=== PATIENT | male | born 1980 | race Caucasian/White ===

== ENCOUNTER → 2019-07-09 07:25 | Outpatient (CLI) | payer BC ==
[~2019-07-09] VITALS: Ht 193 cm; Wt 135.4 kg
--- NOTE | ~2019-07-09 | HEMODYNAMI ---
PATIENT:UZAIR DEGROOT MEDICAL RECORD: [id number] : 82 LOCATION:[facility] ADMISSION DATE: 07/09/19 Generatedon:07/09/201911:48 Patient name: UZAIR DEGROOT Patient #: [id number] : 1980 Date of study: 07/09/2019 Page: Of Hemodynamic Procedure Report Patient Data Patient Demographics Procedure consent was obtained First Name: UZAIR Gender: Male Last Name: MIKAYLA : 1980 Patient #: [id number] Age: 38 year(s) Race: SSN: [id number] Additional ID: [id number] Contact details [address]: [address] [place] [address] [place] State: [place] City: [place] Zip code: [address] Past Medical History Allergies: No known allergies Admission Admission Data Admission Date: 07/09/2019 Admission Time: 7:25 Lab Results Lab Result Date: 07/09/2019 Lab Result Time: 0:00 Biochemistry Name Units Result Min Max BUN mg/dl 13 --(--*-)-- 7 18 Creatinine mg/dl 1.1 --(--*-)-- 0.6 1.3 eGFR ml/min 79.59821 *-(----)-- 90 120 NONAFRICAN CBC Name Units Result Min Max Hemoglobin g/dl 15.9 --(--*-)-- 13.5 17.5 Procedure Procedure Types Cath Procedure Diagnostic Procedure LHC LHC w/Coronaries Sedation Charges Moderate Sedation up to 15 minutes Procedure Description Procedure Date Procedure Date: 07/09/2019 Procedure Start Time: 11:37 Procedure End Time: 11:46 Procedure Staff Name Function Raheem Long MD Performing Physician Krissy Singletary RT Scrub Emmie Jason RT Monitor Melida Morales RN Nurse Procedure Data Cath Procedure Fluoroscopy Diagnostic fluoroscopy Total fluoroscopy Time: 1.1 time: 1.1 min min Diagnostic fluoroscopy Total fluoroscopy dose: 435 dose: 435 mGy mGy Contrast Material Contrast Material Type Amount (ml) Isovue 300 36 Entry Location Entry Primary Successful Side Size Upsize Upsize Entry Closure Hensley ccessful Closure Location (Fr) 1 (Fr) 2 (Fr) Remarks Device Remarks Radial Right 6 Fr Mechanical artery Short Compression Estimated blood loss: 5 ml Diagnostic catheters Device Type Used For End Catheter Placement DIAGNOSTIC [place] 110cm 5 Procedure Fr catheter ([id number]) Procedure Complications No complications Procedure Medications Medication Administration Route Dosage Oxygen etCO2 Nasal cannula 2 l/min Heparin Flush Bag added to field 2 bags (1000units/500ml NS) Lidocaine 2% added to field 20 Radial Cocktail added to field 1 syringe (Verapamil 2mg/Nitro 400mcg/Heparin 1500units) 0.9% NaCl I.V. 100 ml/hr Versed I.V. 2 mg Fentanyl I.V. 100 mcg Versed I.V. 2 mg Fentanyl I.V. 100 mcg Fentanyl I.V. 100 mcg Hemodynamics Rest HGB: 15.9 (g/dl) Heart Rate: 69 (bpm) Snapshots Pre Cath Intra NCS Post Cath Vital Signs Time Heart Resp SPO2 etCO2 NIBP (mmHg) Rhythm Pain Sedation Rate (ipm) (%) (mmHg) Status Level (bpm) 11:05:07 93 14 97 0 134/91(110) NSR 0 (11) 10(A) , No pain 11:09:18 77 14 96 0 152/94(115) NSR 0 (11) 10(A) , No pain 11:13:34 88 22 100 0 155/88(129) NSR 0 (11) 10(A) , No pain 11:17:53 91 14 98 18.9 155/92(106) NSR 0 (11) 10(A) , No pain 11:22:11 106 13 97 40.1 161/88(110) NSR 0 (11) 10(A) , No pain 11:27:18 101 14 96 41.6 153/88(124) NSR 0 (11) 10(A) , No pain 11:31:32 87 13 97 40.1 147/84(108) NSR 0 (11) 10(A) , No pain 11:35:50 88 15 97 37.9 148/88(112) NSR 0 (11) 9(A) , No pain 11:41:01 121 24 99 39.4 155/88(107) NSR 0 (11) 9(A) , No pain 11:44:26 110 15 99 21.2 153/93(106) NSR 0 (11) 10(A) , No pain Medications Time Medication Route Dose Verified Delivered Reason Notes Ef fectiveness by by 11:09:45 Oxygen etCO2 2 l/min Verna Verna for low Nasal Isabel Hall, 02 sats cannula RN RN 11:09:54 Heparin Flush added 2 bags Verna Verna used for Bag to Isabel Hall procedure (1000units/500ml field RN RN NS) 11:10:06 Lidocaine 2% added 20ml Verna Raheem used for to vial Ethan Hall MD procedure field RN 11:10:34 0.9% NaCl I.V. 100 Verna Verna used for ml/hr Isabel Hall appraiser RN 11:29:24 Versed I.V. 2 mg Verna Buffie for Carmen Hall RN sedation RN 11:29:30 Fentanyl I.V. 100 mcg Verna Buffie for Carmen Hall RN sedation RN 11:34:55 Versed I.V. 2 mg Verna Buffie for Carmen Hall RN sedation RN 11:34:59 Fentanyl I.V. 100 mcg Verna Buffie for Carmen Hall RN sedation RN 11:38:16 Radial Cocktail added 1 Verna Raheem used for (Verapamil to syringe Ethan Hall MD procedure 2mg/Nitro field RN 400mcg/Heparin 1500units) 11:42:08 Fentanyl I.V. 100 mcg Verna Buffie for Carmen Hall RN sedation eap specialist Log Time Note 10:57:15 Diagnostic Cath Status : Elective 10:57:32 Procedure Status Elective Heart Cath (OP). 10:57:35 Raheem Long MD sent for patient. Start room use. 10:57:36 Time tracking: Regular hours (M-F 7:00 - 5:00) 10:57:41 Plan of Care:Hemodynamics will remain stable., Cardiac rhythm will remain stable., Comfort level will be maintained., Respiratory function will remain adequate., Patient/ family verbilizes understanding of procedure., Procedure tolerated without complication., Recovers from procedure without complications.. 10:58:04 Informed consent obtained and on chart 11:00:40 Lab Result : Creatinine 1.1 mg/dl 11:00:40 Lab Result : BUN 13 mg/dl 11:00:40 Lab Result : eGFR NONAFRICAN 79.79490 ml/min 11:00:40 Lab Result : Hemoglobin 15.9 g/dl 11:01:41 Patient received from Pre/Post Procedure Room to [facility] 2 Alert and oriented. Tansferred to table in Supine position. 11:01:42 Warm blankets applied, and mary anne hugger turned on for patient comfort. 11:01:43 Correct patient and procedure confirmed by team. 11:01:43 ECG and BP/O2 sat monitors applied to patient. 11:03:57 Vital chart was started 11:03:58 Baseline sample Acquired. 11:04:04 Rhythm: sinus rhythm 11:04:05 Full Disclosure recording started 11:04:08 H&P Date Dictated: 07/09/2019 Within 30 days and on chart., H&P Addendum completed by physician on day of procedure. (MUST COMPLETE FOR ALL OUTPATIENTS). 11:04:19 Pre-procedure instructions explained to patient. 11:04:20 Pre-op teaching completed and patient verbalized understanding. 11:04:21 Family in waiting room. 11:04:22 Patient NPO since Midnight. 11:04:24 Is the patient allergic to Iodine/contrast media? No. 11:04:25 Was the patient premedicated? Yes 11:04:37 Is patient on blood thinner?No 11:04:39 Patient diabetic? No. 11:04:42 Previous problem with sedation/anesthesia? No ? 11:04:44 Snore? Yes 11:04:47 Sleep apnea? Yes 11:04:47 Deviated septum? No 11:04:48 Opens mouth fully? Yes 11:04:49 Sticks out tongue? Yes 11:04:52 Airway obstruction? No ? 11:04:53 Dentures? No ? 11:04:57 Pre procedure: right dorsailis pedis pulse 2+ Normal; easily identifiable; not easily obliterated 11:05:00 Pre procedure: left dorsailis pedis pulse 2+ Normal; easily identifiable; not easily obliterated 11:05:04 Patient pain scale 0/10 ?. 11:05:10 IV patent on arrival in left forearm with 0.9% NaCl at [facility]. 11:05:12 Lab results completed and on chart. 11:05:16 Stress Test: no; N/A ? 11:05:19 Risk of Mortality: 0.1 11:05:22 Risk of blood transfusion: 0.1 11:05:29 Risk of RADHA: 0.6 11:06:15 Right Radial & Right Groin area was prepped with chlora-prep and draped in sterile fashion 11:06:16 Alarms reviewed by R. N. 11:06:16 Sharps counted by scrub and verified by R.N. 11:09:45 Oxygen 2 l/min etCO2 Nasal cannula was administered by Verna Hall RN; for low 02 sats; Verbal order read back and verified. 11:09:54 Heparin Flush Bag (1000units/500ml NS) 2 bags added to field was administered by Verna Hall RN; used for procedure; Verbal order read back and verified. 11:10:06 Lidocaine 2% 20ml vial added to field was administered by Raheem Long MD; used for procedure; Verbal order read back and verified. 11:10:34 0.9% NaCl 100 ml/hr I.V. was administered by Verna Hall RN; used for procedure; Verbal order read back and verified. 11:28:07 Patient allergic to No known allergies 11:28:26 Zero performed for pressure channel P1 11:28:41 Physician arrived 11:28:42 --------ALL STOP TIME OUT------ 11:28:43 Final Timeout: patient, procedure, and site verified with staff and physician. All members of the team are in agreement. 11:28:52 Right Radial & Right Groin site verified by team. 11:28:57 Fire Safety Assessment: A--An alcohol-based skin anteseptic being used preoperatively., C--Open oxygen or nitrous oxide is being used., D--An ESU, laser, or fiber-optic light is being used. 11:29:02 Physical assessment completed. ASA score P 2 - A patient with mild systemic disease as per Raheem Long MD. 11:29:11 1) 90+ Normal kidney functon but urine findings or structural abnormalities or genetic trait point to kidney disease. 11:29:17 Maximum allowable contrast dose (3.7 X eGFR X 0.75)222 ml. 11:29:23 Sedation plan: IV Moderate Sedation Medication:Versed, Fentanyl 11:29:24 Versed 2 mg I.V. was administered by Melida Morales RN; for sedation; Verbal order read back and verified. 11:29:30 Fentanyl 100 mcg I.V. was administered by Melida Morales RN; for sedation; Verbal order read back and verified. 11:29:38 Use device set Radial Dx or PCI 11:29:40 ACIST Syringe (83257) opened to sterile field. 11:29:41 Medline Cath Pack ([id number]) opened to sterile field. 11:29:41 Bag Decanter (2002S) opened to sterile field. 11:29:42 ACIST Hand Control (83834) opened to sterile field. 11:29:43 ACIST Manifold (30856) opened to sterile field. 11:29:44 Tegaderm 4 x 4 (1626W) opened to sterile field. 11:29:44 MBrace Wrist Support ([id number]) opened to sterile field. 11:29:47 EMERALD Guide Wire (191-976) opened to sterile field. 11:29:48 SHEATH 6FR RAIN (4457668) opened to sterile field. 11:34:55 Versed 2 mg I.V. was administered by Melida Morales RN; for sedation; Verbal order read back and verified. 11:34:59 Fentanyl 100 mcg I.V. was administered by Melida Morales RN; for sedation; Verbal order read back and verified. 11:37:37 Procedure started. 11:37:43 Local anesthetic to right radial artery with Lidocaine 2% by Raheem Long MD.INITIAL ACCESS ONLY 11:38:04 A 6 Fr Short sheath was inserted into the Right Radial artery 11:38:08 Zero performed for pressure channel P1 11:38:12 A DIAGNOSTIC [place] 110cm 5 Fr catheter (457276) was advanced over the wire and used for Procedure. 11:38:16 Radial Cocktail (Verapamil 2mg/Nitro 400mcg/Heparin 1500units) 1 syringe added to field was administered by Raheem Long MD; used for procedure; Verbal order read back and verified. 11:38:31 Injector settings: Ml/sec: 5, Volume: 15, 11:38:35 LV gram done using HOPSON 11:38:45 EF : 65 % 11:39:32 LCA angiography performed. 11:39:42 Injector settings: Ml/sec: 3, Volume: 6, 11:40:04 RCA angiography performed. 11:40:10 Injector settings: Ml/sec: 3, Volume: 6, 11:40:13 Catheter removed. 11:40:54 ZEPHYR REGULAR TR BAND (688078) opened to sterile field. 11:41:05 Procedure ended.(Physican Out) 11:41:14 Sheath removed intact; hemostasis achieved with Mechanical Compression to the Right Radial artery. 11:41:22 Contrast amount:Isovue 300 36ml. 11:41:35 Fluoroscopy time 01.10 minutes. 11:41:44 Fluoroscopy dose: 435 mGy 11:41:44 Flurop Dose total: 435 11:41:53 Dose Area Product 06090 mGy/cm. 11:41:56 Maximum allowable dose exceeded? No. 11:41:57 Sharps counted by scrub and verified by R.N. 11:42:01 Zebulon band inflated with 10cc of air. 11:42:08 Fentanyl 100 mcg I.V. was administered by Melida Morales RN; for sedation; Verbal order read back and verified. 11:42:14 Post right radial artery:stable 11:42:18 Post Procedure Pulses reassessed and unchanged 11:42:22 Post-procedure physical assessment completed. ASA score P 2 - A patient with mild systemic disease as per Raheem Long MD. 11:42:26 Post procedure rhythm: unchanged. 11:42:30 Estimated blood loss: 5 ml 11:42:31 Post procedure instruction explained to patient.Patient verbalizes understanding. 11:42:33 Patient needs reinforcement of post procedure teaching. 11:45:37 Procedure type changed to Cath procedure, Diagnostic procedure, LHC, [facility] w/Coronaries, Sedation Charges, Moderate Sedation up to 15 minutes 11:45:39 Procedure and supply charges have been captured, reviewed, submitted and are correct. 11:46:09 Procedure Complication : No complications 11:46:13 Vital chart was stopped 11:46:17 [facility] Findings: mild to moderate CAD (<70%) 11:46:21 Operative report dictated upon procedure completion. 11:46:22 See physician's report for complete and final results. 11:46:31 Report given to Pre/Post Procedure Room. 11:46:35 Patient transfered to Pre/Post Procedure Room with Stretcher. 11:46:38 Procedure ended. 11:46:38 Full Disclosure recording stopped Device Usage Item Name Manufacture Quantity Catalog Hospital Part Current Minima l Lot# / Number Charge Number Stock Stock Serial# Code ACIST Acist 1 16706 [id number] 309395 [id number] 20 Syringe Medical (26918) Systems Inc Medline Medline 1 [id number] 59085 200331 5 Cath Pack ([id number]) Bag Microtek 1 2001S 957456 74619 886978 5 Decanter Medical Inc. () ACIST Hand Acist 1 10461 078111 499137 373709 5 Control Medical (57952) Systems Inc ACIST Acist 1 47356 913719 745341 020425 5 Manifold Medical (79809) Systems Inc Tegaderm 4 3M 1 1626W 379214 807635 570145 5 x 4 (1626W) MBrace Advanced 1 140-0250-00 881416 22427 024863 5 Wrist Vascular Support Dynamics ([id number]) EMERALD Cardinal 1 502-421 706786 827910 583163 5 Guide Wire Health (502455) SHEATH 6FR Cardinal 1 [id number] 215383 3644699 567931 5 [facility] Health (9693311) DIAGNOSTIC Terumo 1 40-9606 381795 058677 112342 5 [place] 110cm 5 Fr catheter (896270) ZEPHYR Cardinal 1 439126 228900 1890325 383537 5 REGULAR TR Health BAND (064015) Signature Audit [place] Stage Time Signature Unsigned Intra-Procedure 07/09/2019 Emmie 11:47:05 AM Casie RT(R) (CV) Intra-Procedure 07/09/2019 Melida Morales RN 11:47:32 AM Intra-Procedure 07/09/2019 Raheem Long 11:48:07 AM Signatures Performing Physician : Signature : Raheem Long MD Date : Time : Monitor : Emmie Signature : Nannemann RT Date : Time : Nurse : Buffie Morales RN Signature : Date : Time : [address] [place] [address]
[~2019-07-09 07:25] MED LIST: ANASTROZOLE; LIPITOR80 MG PO; LISINOPRIL40 MG PO; MELATONIN10 M1 PO; OMEPRAZOLE40 MG PO; PROAIR HFA8.5 G1 INH; WELLBUTRIN SR150 MG PO
[2019-07-09 07:59] VITALS: BP 126/74; Ht 193 cm; Wt 135.4 kg
[2019-07-09 08:32] LABS: BASOPHILS 0.2 % (0-2); HEMATOCRIT 47.1 % (42.0-54.0); HEMOGLOBIN 15.9 g/dL (13.5-17.5); LYMPHOCYTES 19.2 % (15-50); MCH 30.1 pg (26.0-34.0); MCHC 33.8 g/dL (31.0-37.0); MCV 89.2 fL (80.0-100.0); MEAN PLATELET VOLUME 9.9 fL (7.4-10.4); MONOCYTES 11.8 % (2-11); NEUTROPHILS 64.8 % (40-80); PLATELET COUNT 275 10x3/uL (130-400); RBC 5.28 10x6/uL (4.20-6.10); RDW 13.9 % (11.5-14.5); WBC 9.6 10x3/uL (4.8-10.8)
[2019-07-09 08:39] LABS: ALT (SGPT) 65 U/L (10-68); CALC OSMOLALITY 271 mosm/kg (275-300); CALCIUM 9.1 mg/dL (8.5-10.1); CARBON DIOXIDE 25.9 mmol/L (21.0-32.0); CHLORIDE - SERUM 101 mmol/L (98-107); CHOL - HDL RATIO 3.7 ratio (2.3-4.9); CHOLESTEROL, TOTAL 103 mg/dL (0-200); CREATININE - SERUM 1.1 mg/dL (0.6-1.3); GLUCOSE 106 mg/dL (74-106); HDL CHOLESTEROL 28 mg/dL (32-96); LDL CHOLESTEROL 64 mg/dL (0-100); LDL-HDL RATIO 2.3 ratio (1.5-3.5); POTASSIUM - SERUM 4.5 mmol/L (3.5-5.1); SODIUM 136 mmol/L (136-145); TRIGLYCERIDE 59 mg/dL (30-200); UREA NITROGEN 13 mg/dL (7-18); eGFR NON AFRICAN AMERICAN 80 mL/min (90-120)
--- NOTE | 2019-07-09 11:50 | NUR ---
PT RECEVIED VIA STRETCHER FROM [employer]EL RECRUITER FOR RECOVERY. PT AWAKE AND ALERT, DENIES PAIN OR DISCOMFORT. IV PATENT INFUSING VIA ORDERS TO L ARM. PT PLACED ON CARDIAC MONITORS AND O2 VIA NC AT 2L. HR S TACHY, RATE 97, BP 139/82, RR 14, SAT 94. ZYPHER BAND AND IMMOBILIZER TO R WRIST, NO S/S BLEEDING OR HEMATOMA. ARM PINK AND WARM, CAP REFILL BRISK. DR HERMAN IN AND SPOKE WITH PT AND REGARDING PROCEDURE RESULTS AND PLAN OF CARE, NO NEW ORDERS REC'D. CALL LIGHT IN REACH, FAMILY AT BS.
--- NOTE | 2019-07-09 12:15 | NUR ---
PT RESTING W/O COMPLAINTS. ZBAND IN PLACE, NO BLEEDING OR S/S HEMATOMA NOTED. ARM PINK AND WARM, CAP REFILL BRISK. HR 82, BP 126/67, RR 17, SAT 95. CALL LIGHT IN REACH. OFFERED SOMETHING TO DRINK, DECLINES AT THIS TIME. AT BS.
--- NOTE | 2019-07-09 13:04 | NUR ---
PT RESTING COMFORTALBY, Z BAND IN PLACE, DRESSING CDI NO S/S HEMATOMA. 4CC AIR REMOVED PER PROTOCOL, NO BLEEDING NOTED. CAP REFILL BRISK. VSS. SANDWICH AND DRINK SERVED, PT DENIES PAIN OR OTHER NEEDS. CALL LIGHT IN REACH AT BS.
--- NOTE | 2019-07-09 13:30 | NUR ---
PT RESTING COMFORTABLY. ZBAND IN PLACE NO BLEEDING NOTED. CAP REFILL BRISK. PT TOLERATED PO FOOD AND FLUIDS W/O NAUSEA. VSS. CALL LIGHT IN REACH
--- NOTE | 2019-07-09 13:48 | NUR ---
DISCHARGE INSTRUCTIONS REVIEWED W PT AND , BOTH VERBALIZED UNDERSTANDING. IV REMOVED W CATH INTACT. 3 ADDL CC AIR REMOVED W/O BLEEDING NOTED. MONITORS REMOVED AND PT UP TO DRESS FOR DISCHARGE.
--- NOTE | 2019-07-09 13:59 | NUR ---
REMAINING AIR AND Z BAND REMOVED, NO BLEEDING OR S/S HEMATOMA NOTED. 2X2 AND SM TEGADERM DRESSING APPLIED, IMMOBILIZER RE POSITIONED. PT DISCHARGED VIA WC TO WAITING IN PRIVATE VEHICLE. PT HAD ALL BELONGINGS AND DISCHARGE PAPERWORK IN HAND.
--- NOTE | 2019-07-09 16:42 | OP ---
PATIENT NAME: UZAIR DEGROOT MEDICAL RECORD: [id number] :82 LOCATION:D.CAT ADMISSION DATE: SURGEON: ARIC HERMAN MD DATE OF OPERATION: 07/09/2019 DATE OF SERVICE: 07/09/2019 PROCEDURES: 1. Left heart catheterization. 2. Selective coronary angiography. 3. Left ventriculogram. INDICATION: Chest pain, abnormal nuclear stress test. PROCEDURE IN DETAIL: After informed consent was obtained and after a detailed description of risks, benefits as well as alternative therapies, the patient elected to proceed with angiogram and heart catheterization. The right radial area was prepped and draped in normal sterile fashion. Right radial artery was cannulated via modified Seldinger technique with placement of 5-German sheath. All catheters exchanged through this sheath. FINDINGS: Left ventriculogram was performed in standard 30-degree HOPSON view, reveals good cardiac wall motion, ejection fraction estimated 60%. SELECTIVE CORONARY ANGIOGRAPHY: Left main, left anterior descending, left circumflex, right coronary artery are all smooth-walled vessels with no angiographic evidence of coronary artery disease. OVERALL IMPRESSION: 1. No angiographic evidence of coronary artery disease. 2. Normal left heart pressures. 3. Normal left ventricular systolic function. Chest pain is noncardiac in etiology. No further cardiac workup needs to be ascertained. TRANSINT:[id number] Voice Confirmation ID: [id number] DOCUMENT ID: [id number] ARIC HERMAN MD at 1642 CC: [id number] DICTATION DATE: 07/09/19 1143 COMMERCIAL DIVER: 07/09/19 [id number] [place] [address]
== END | disposition home or self-care (01) ==
LOC: D.CATH 07:25
PROVIDERS: ATTEND Internal Medicine Interventional Cardiology
DX: R07.9 Chest pain, unspecified (principal); R94.39 Abnormal result of other cardiovascular function study; I10 Essential (primary) hypertension; E78.5 Hyperlipidemia, unspecified; R42 Dizziness and giddiness